=== PATIENT | male | born 1985 | race Caucasian/White ===

== ENCOUNTER 2016-09-18 07:27 | Inpatient (IN) | payer BC ==
[~2016-09-18] VITALS: Ht 180.3 cm; Wt 67.1 kg
[~2016-09-18 07:27] MED LIST: ALPR1TAB PO; CHLR10C PO
--- OUTSIDE RECORDS SUMMARY | 2016-09-18 07:34 | XMS REPORT | Continuity of Care Document ---
Author Author [facility] Organization [facility] Address Unknown Phone Unavailable Care Team Providers Care Make Up Editor Name Role Phone Arlin Armenta PCP [phone] Source Comments Some departments are not documenting in the electronic medical record. If you do not see the information that you expected, contact Release of Information in the Health Information Management department at [phone] for further assistance in locating additional records.[facility] Active Allergies and Adverse Reactions No Known Allergies Current Medications Prescription Sig. Disp. Refills Start End Date Status Date folic acid (FOLVITE) 1 mg Take 1 Tab by mouth 90 Tab 3 01/27/20 Active tablet daily. 16 sertraline (ZOLOFT) 25 mg Take 1 Tab by mouth 30 Tab 3 01/27/20 Active tablet daily. 16 thiamine (VITAMIN B-1) Take 1 Tab by mouth 90 Tab 3 01/27/20 Active 100 mg tablet daily. 16 nicotine polacrilex 1 Lozenge every 1 hour as 100 Tab 0 01/27/20 Active (COMMIT) 4 mg lozenge needed. 16 oxyCODONE (ROXICODONE) 5 Take 1-2 Tabs by mouth 60 Tab 0 01/27/20 Active mg tablet every 4 hours as needed 16 for Pain polyethylene glycol 3350 Take 17 g by mouth daily. 238 g 3 01/27/20 Active (GLYCOLAX; MIRALAX) 17 16 gram/dose powder senna/docusate Take 1 Tab by mouth twice 60 Tab 1 01/27/20 Active (SENOKOT-S) 8.6/50 mg daily. 16 tablet Active Problems Problem Noted Date C. difficile colitis 01/25/2016 Alcohol-induced acute pancreatitis 01/21/2016 Leukocytosis 01/21/2016 Elevated lipase 01/21/2016 SIRS (systemic inflammatory response syndrome) (HCC) 01/21/2016 Alcohol abuse 01/21/2016 Smoker 01/21/2016 Gastroesophageal reflux disease without esophagitis 01/21/2016 Cough 01/21/2016 Acute alcoholic pancreatitis 01/21/2016 Immunizations Name Dates Previously Given Next Due Pneumococcal Vaccine 01/24/2016 (23-Ginger Adult) Social History Tobacco Use Types Packs/Day Years Used Date Current Every Day Smoker Cigarettes 1 10 Smokeless Tobacco: Never Used Alcohol Use Drinks/Week oz/Week Comments Yes 0 Standard 0.0 1-1.5L vodka every 2 days drinks or equivalent Last Filed Vital Signs Vital Sign Reading Time Taken Blood Pressure 117/76 01/27/2016 12:00 PM CDT Pulse 88 01/27/2016 12:00 PM CDT Temperature 37.1 C (98.7 F) 01/27/2016 12:00 PM CDT Respiratory Rate - - Height 1.778 m (5' 10") 01/22/2016 3:24 PM CDT Weight 72.5 kg (159 lb 13.3 oz) 01/24/2016 10:09 AM CDT Body Mass Index 22.93 01/24/2016 10:09 AM CDT Oxygen Saturation 92% 01/27/2016 12:00 PM CDT Plan of Care Health Maintenance Due Date Last Done Comments Physical (Comprehensive) 1993 Exam Pertussis Vaccine 1997 Tetanus Vaccine 2003 Influenza Vaccine 05/17/2016 Results from Last 3 Months Not on file
[2016-09-18] MEDS ORDERED: BUSP30TA2 PO (07:44)
[2016-09-18] MEDS ORDERED: DIAZ2TAB PO (07:44)
[2016-09-18] MEDS ORDERED: FAMOTIDINE 20MG/2ML IV (PEPCID) IV STA (07:59)
[2016-09-18] MEDS ORDERED: fentaNYL INJECTION 100 MCG/2 ML AMP IVP STA (07:59)
[2016-09-18] MEDS ORDERED: KETOROLAC 30 MG/ML VIAL IVP STA (07:59)
[2016-09-18] MEDS ORDERED: NS IV 1000 ML 1,000 ML IV STA (07:59)
[2016-09-18 08:06] LABS: BASOPHILS % (AUTO) 0 % (0-10); EOSINOPHILS # (AUTO) 0.1 10^3/uL (0.0-0.3); EOSINOPHILS % (AUTO) 0 % (0-10); LYMPHOCYTES # (AUTO) 2.2 X 10^3 (1.0-4.0); LYMPHOCYTES % (AUTO) 15 % (12-44); MEAN CORPUSCULAR HEMOGLOBIN 32 PG (25-34); MEAN CORPUSCULAR HGB CONC 35 G/DL (32-36); MEAN CORPUSCULAR VOLUME 92 FL (80-99); MONOCYTES # (AUTO) 0.7 X 10^3 (0.0-1.0); MONOCYTES % (AUTO) 5 % (0-12); NEUTROPHILS # (AUTO) 11.8 X 10^3 (1.8-7.8); NEUTROPHILS % (AUTO) 80 % (42-75); PLATELET COUNT 273 10^3/uL (130-400); RED BLOOD COUNT 4.87 10^6/uL (4.35-5.85); RED CELL DISTRIBUTION WIDTH 13.5 % (10.0-14.5); WHITE BLOOD COUNT 14.8 10^3/uL (4.3-11.0)
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
[2016-09-18 08:21] LABS: ALANINE AMINOTRANSFERASE 37 U/L (0-55); ALBUMIN 4.7 G/DL (3.2-4.5); ALCOHOL 73 MG/DL (<10); AMYLASE 125 U/L (25-125); ANION GAP 19 MMOL/L (5-14); ASPARTATE AMINO TRANSFERASE 37 U/L (5-34); BILIRUBIN,TOTAL 1.1 MG/DL (0.1-1.0); BLOOD UREA NITROGEN 10 MG/DL (7-18); BUN/CREATININE RATIO 12; CARBON DIOXIDE 18 MMOL/L (21-32); CHLORIDE 106 MMOL/L (98-107); CREATININE SERUM 0.82 MG/DL (0.60-1.30); GFR ESTIMATED > 60; GLUCOSE 103 MG/DL (70-105); LIPASE 388 U/L (8-78); POTASSIUM 3.6 MMOL/L (3.6-5.0); SODIUM 143 MMOL/L (135-145); TOTAL PROTEIN 6.6 G/DL (6.4-8.2)
[2016-09-18 08:24] LABS: BAND NEUTROPHILS 1 %; BASOPHILS % (MANUAL) 1 %; EOSINOPHILS % (MANUAL) 0 %; LYMPHOCYTES % (MANUAL) 11 %; NEUTROPHILS % (MANUAL) 84 %
[2016-09-18] MEDS ORDERED: IOHEXOL 350 MG/ML 100 ML (OMNIPAQUE 350) VIAL IV ONE (08:45)
[2016-09-18] MEDS ORDERED: NS 100 ML (IVPB) BAG IV ONE (08:45)
[2016-09-18] MEDS ORDERED: NS IV 1000 ML 1,000 ML IV ONE (09:03)
--- NOTE | 2016-09-18 09:20 | Diagnostic Imaging Report ---
PROCEDURE: CT abdomen and pelvis with contrast. TECHNIQUE: Multiple contiguous axial images were obtained through the abdomen and pelvis after administration of intravenous contrast. INDICATION: Abdominal pain. Left lower quadrant hernia. COMPARISON: None. FINDINGS: Diffuse inflammatory changes surrounding the pancreas. There is a 1.9 x 1.7 x 2.6-cm low-attenuation region in the pancreatic tail. The portal venous system is patent. No evidence of arterial aneurysm. No biliary ductal dilatation or evidence of obstructing lesion. The liver, gallbladder, spleen, adrenals, kidneys, collecting systems and appendix are negative. No free intraperitoneal air, lymphadenopathy or evidence of bowel obstruction. Osseous structures are unremarkable. IMPRESSION: CT findings of acute pancreatitis. There is a low-attenuation, hypoenhancing in the region of tail of pancreas which is indeterminate at this time and may represent developing peripancreatic fluid collection or necrosis. Dictated by: Dictated on workstation # [id number]
[2016-09-18 09:25] LABS: BILIRUBIN,URINE NEGATIVE (NEGATIVE); KETONES,URINE 3+ (NEGATIVE); LEUKOCYTE ESTERASE ,URINE 1+ (NEGATIVE); NITRITE,URINE NEGATIVE (NEGATIVE); PH,URINE 5 (5-9); PROTEIN,URINE 2+ (NEGATIVE); UROBILINOGEN,URINE 1 MG/DL (NORMAL)
[2016-09-18 09:34] LABS: SQUAMOUS EPITHELIAL CELL,UR 0-2 /HPF
[2016-09-18] MEDS ORDERED: HYDROmorphone (DILAUDID) 2 MG/ML VIAL ONE (09:57)
[2016-09-18] MEDS ORDERED: HYDROmorphone (DILAUDID) 2 MG/ML VIAL IVP ONE (10:15)
[2016-09-18] MEDS ORDERED: HYDROmorphone (DILAUDID) 2 MG/ML VIAL IVP PRN (11:30)
[2016-09-18] MEDS: NS IV 1000 ML 1,000 ML IV SCH ×2 (11:42→19:19)
[2016-09-18 12:00] VITALS: BP 137/84
[2016-09-18] MEDS: HYDROmorphone (DILAUDID) 2 MG/ML VIAL IVP PRN ×6 (13:15→22:04)
[2016-09-18] MEDS: NICOTINE 14 MG (NICODERM) PATCH TD SCH (13:42)
[2016-09-18] MEDS ORDERED: FLU TRIvalent (5 YOA+) 2016-17 (AFLURIA) 0.5 ML IM ONE (14:15)
[2016-09-18] MEDS: ONDANSETRON 4 MG/2 ML (SDV) Z0FRAN IVP PRN ×2 (15:06→23:08)
[2016-09-18 16:00] VITALS: BP 160/80
[2016-09-18 19:15] VITALS: BP 161/84
[2016-09-19] VITALS: BP 159/85
[2016-09-19] MEDS: HYDROmorphone (DILAUDID) 2 MG/ML VIAL IVP PRN ×5 (00:08→08:04)
[2016-09-19] MEDS: NS IV 1000 ML 1,000 ML IV SCH (03:21)
[2016-09-19] MEDS: ONDANSETRON 4 MG/2 ML (SDV) Z0FRAN IVP PRN ×2 (03:31→08:11)
[2016-09-19 04:00] VITALS: BP 139/86
[2016-09-19 06:02] LABS: BASOPHILS % (AUTO) 0 % (0-10); EOSINOPHILS % (AUTO) 0 % (0-10); LYMPHOCYTES # (AUTO) 0.6 X 10^3 (1.0-4.0); LYMPHOCYTES % (AUTO) 3 % (12-44); MEAN CORPUSCULAR HEMOGLOBIN 32 PG (25-34); MEAN CORPUSCULAR HGB CONC 34 G/DL (32-36); MEAN CORPUSCULAR VOLUME 94 FL (80-99); MEAN PLATELET VOLUME 10.6 FL (7.4-10.4); MONOCYTES % (AUTO) 6 % (0-12); NEUTROPHILS # (AUTO) 14.7 X 10^3 (1.8-7.8); NEUTROPHILS % (AUTO) 90 % (42-75); PLATELET COUNT 200 10^3/uL (130-400); RED CELL DISTRIBUTION WIDTH 13.1 % (10.0-14.5); WHITE BLOOD COUNT 16.2 10^3/uL (4.3-11.0)
[2016-09-19 06:22] LABS: ALANINE AMINOTRANSFERASE 24 U/L (0-55); ALBUMIN 3.9 G/DL (3.2-4.5); ANION GAP 14 MMOL/L (5-14); ASPARTATE AMINO TRANSFERASE 31 U/L (5-34); BILIRUBIN,TOTAL 1.1 MG/DL (0.1-1.0); BLOOD UREA NITROGEN 5 MG/DL (7-18); BUN/CREATININE RATIO 7; CALCIUM 8.6 MG/DL (8.5-10.1); CARBON DIOXIDE 19 MMOL/L (21-32); CHLORIDE 104 MMOL/L (98-107); GFR ESTIMATED > 60; GLUCOSE 117 MG/DL (70-105); POTASSIUM 4.3 MMOL/L (3.6-5.0); SODIUM 137 MMOL/L (135-145)
[2016-09-19] MEDS: NICOTINE 14 MG (NICODERM) PATCH TD SCH (08:03)
[2016-09-19 08:40] VITALS: BP 163/79
[2016-09-19] MEDS: NICOTINE PATCH REMOVAL TP SCH (09:26)
[2016-09-19] MEDS ORDERED: diphenhydrAMINE 50 MG/ML INJ (BENADRYL) IV PRN (09:30)
[2016-09-19] MEDS ORDERED: AA 4.25% W/LYTES IN D5W IV SOL 1,000 ML IV SCH (09:30)
[2016-09-19] MEDS ORDERED: NALOXONE 0.4 MG/ML 1 ML (NARCAN) VIAL IV PRN (09:30)
[2016-09-19] MEDS ORDERED: METOCLOPRAMIDE INJ 10 MG/2 ML (REGLAN) IV PRN (09:30)
[2016-09-19] MEDS ORDERED: PANTOPRAZOLE 40 MG/10 ML (PROTONIX) VIAL IV SCH (09:30)
[2016-09-19] MEDS ORDERED: ONDANSETRON 4 MG/2 ML (SDV) Z0FRAN IV PRN (09:30)
[2016-09-19] MEDS ORDERED: TPN IV SCH (09:30)
[2016-09-19] MEDS: HYDROmorphone PCA 0.2 MG/ML 30 ML (DILAUDID) IV PRN ×2 (09:57→23:09)
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
[2016-09-19 10:08] LABS: MAGNESIUM 1.9 MG/DL (1.8-2.4); PHOSPHORUS 3.1 MG/DL (2.3-4.7)
--- NOTE | 2016-09-19 10:57 | Diagnostic Imaging Report ---
Portable upright radiograph of the chest. INDICATION: PICC line placement. FINDINGS: There is a right PICC line with the tip at the cavoatrial junction. The lungs are clear. The heart size is normal. No effusion or pneumothorax. Mediastinum and josh appear unremarkable. IMPRESSION: Unremarkable exam. Dictated by: Dictated on workstation # [id number]
[2016-09-19 12:30] VITALS: BP 138/84
[2016-09-19] MEDS: cefTRIAXone INJECTION 1,000 MG in NORMAL SALINE (BAXTER MINI) 50 ML IV SCH (14:16)
--- NOTE | 2016-09-19 14:49 | CONSULTATION REPORT ---
DATE OF ADMISSION: 09/18/2016 DATE OF CONSULTATION: 09/19/2016 ADMITTING PHYSICIAN: Dr. Boyce. BRIEF HISTORY: Mr. Addy Fay is a 31-year-old male with a history of acute pancreatitis back in November 2015. This required hospital admission and eventually transfer to a tertiary center. This gentleman reports that he has had a long-standing history of alcohol abuse however after his episode of acute pancreatitis he states that he has tried to decrease the amount of drinking. He reports that the day before this admission he did drink again. He reports that he had an argument with his girlfriend and did start to drink and this resulted in an epigastric sharp pain, as well as nausea and vomiting. A CT scan was performed, which did show inflammation of the pancreas, as well as potential area of non- perfusion, which may indicate a sterile necrosis, which may be from the previous pancreatitis versus a new area. At this time, he only has one [place] criteria out of five. His pain is controlled with a ELECTRICAL MAINTENANCE ENGINEER pump. PAST MEDICAL HISTORY: 1. Alcohol abuse. 2. Depression. 3. ADHD. 4. Anxiety. PAST SURGERIES: 1. Tonsillectomy. 2. Hernia repair. ALLERGIES: AUGMENTIN MEDICATIONS: Bupropion SOCIAL HISTORY: Positive alcohol. Positive smoke 10 pack-years. FAMILY HISTORY: Paternal uncle with pancreatic cancer. VITAL SIGNS: Temperature 99.9, blood pressure 163/79, pulse 109, respirations 18, pulse oximetry 97% on room air. REVIEW OF SYSTEMS: This is a well nourished male, currently comfortable with a ELECTRICAL MAINTENANCE ENGINEER. He is not experiencing shortness of breath or difficulty in breathing. He is experiencing some cough and sputum production. No chest pain, palpitations, diaphoresis. Previous nausea and vomiting. No episodes of diarrhea, no constipation. No red blood per rectum. No dark tarry stools. No fever, chills, no recent inadvertent weight loss. PHYSICAL EXAMINATION: CHEST: Good breath sounds bilaterally. HEART: Regular. EXTREMITIES: No lower extremity edema. Negative Homans sign. HEENT: No scleral icterus. No cervical lymphadenopathy. ABDOMEN: Soft, nondistended. There is pain in the epigastric region with voluntary guarding, no rebound. LABS: WBC 16.2, hemoglobin 15.5, hematocrit 44, platelets 200, total bilirubin 1.1, AST 31, ALT 24, amylase 125, lipase 388. ASSESSMENT AND PLAN: 31-year-old male with acute recurrent episode of acute pancreatitis. Signs and symptoms are most likely consistent with another episode of acute pancreatitis. A CT scan was done on admission, which did show a potential area of nonvisualization or ischemic changes of the tail of the pancreas which most likely indicates an area of sterile necrosis from his previous episode versus a new area. Either way treatment modality will be similar which will be bowel rest, IV fluids, as well as pain control. If he does have worsening symptoms despite medical therapy he would need confirmation of infected pancreatic necrosis with biopsy and if this was the case, he will may need further therapy, which may include a pancreatic necrosectomy; however we would refer him to a tertiary center for this. Job ID: [id number] Dictated Date: 09/19/2016 13:41:15 Senior Business Manager Date: 09/19/2016 14:39:53/harshal MANCILLA
[2016-09-19 16:00] VITALS: BP 135/93
[2016-09-19] MEDS: ACETAMINOPHEN 325 MG TABLET/CAPLET (TYLENOL) PO PRN (16:43)
[2016-09-19] MEDS ORDERED: SODIUM ACETATE IV SCH ×11 (17:00)
[2016-09-19] MEDS ORDERED: SODIUM CHLORIDE IV SCH ×11 (17:00)
[2016-09-19] MEDS ORDERED: [UNRECOGNIZED DRUG - OTHER] IV SCH ×11 (17:00)
[2016-09-19] MEDS: 1/2 NS IV SOLUTION 1,000 ML IV SCH (17:01)
[2016-09-19] MEDS: PANTOPRAZOLE 40 MG/10 ML (PROTONIX) VIAL IV SCH (20:24)
[2016-09-19 20:52] VITALS: BP 140/76
[2016-09-20] VITALS: BP 143/83
[2016-09-20 04:00] VITALS: BP 143/84
--- NOTE | 2016-09-20 07:43 | Progress Note-Hospitalist ---
Progress Note HPI/CC on Admission CC: Severe abdominal pain HPI: This is a 31yoWM that has Hx of pancreatitis due to severe ETOH abuse that presents to ER with abdominal pain found to have acute pancreatitis on CT scan with lipase of 388. He reports that he has been trying to avoid ETOH but had a break up with his girlfriend and drank a pint of vodka which resulted in this issue. RN is concerned about elevated WBC and severe pain and tachycardia. I have consulted Dr. Marinelli, due to possible necrosis on CT scan. Chart Review: CT abdomen shows acute pancreatitis with possible fluid collection or necrosis. community center worker: Pt has requested Protonix, and states that he has stomach pain. WBC has risen slightly. Pt's vomit was discolored, possible blood. Patient Interview: Dr. Grace informs pt that he will receive Protonix and will have a consultation with Dr. Marinelli. Pt states that he still has significant pain. Pt states that he always has heart burn. Pt states that he thinks there was tar in his vomit, not blood, due to his smoking habits. Physical exam was stable. Pt states that he had pancreatitis in November of 2015. Pt was hospitalized at [place] for 4 days and then sent to for pneumonia and C. diff. Pt does not remember much of this incident. Pt stayed at for a week. Pt states that he has stayed away from ETOH until recent break up. 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 Pt states that his current pain meds last for only an hour. Scribed by Conrado Worley under the direct supervision of Dr. Grace. Progress Notes/Assess & Plan Date Seen 09/20/16 Admission Dx/Process Assessment: Acute pancreatitis recurrent type. Last 11/29 complicated with pneumonia and C. diff required [facility] transfer for 7 days. Now with increased pain and possible necrosis of pancreas. Smoker Leukocytosis Diagonsis/Assessment & Plan community center worker: Pt did well last night. Pt has not had nausea or vomiting. When pt is awake is pain is more controlled. Dr. Marinelli saw pt. Patient Interview: Pt states he is doing better than yesterday. Pt denies nausea or vomiting. Physical exam was stable. Pt denies ambulating. Pt states he was too weak to ambulate yesterday. Pt was encouraged to ambulate today. Pt was informed he is receiving calories through his IV. Scribed by Asif Leonard under the direct supervision of Dr. Grace. AFVSS, Pleasant, O x 3, thin RRR, CTAB no rales noted + BS mild ttp to soft palpation Assessment: Severe and recurrent pancreatitis Immobile so ordered PT and ordered Lovenox for DVT Px meth use ETOH-ism Plan: Consult Dr. Marinelli appreciated Continue Protonix IV PICC line maintained Maintain TPN Stop Dilaudid IVP and begin COLLAR CLOSER LOCKSTITCH of Dilaudid Will initiate Lovenox due to immobile state PT FAN GRACE DO Sep 20, 2016 07:43
[2016-09-20] MEDS: SENNA W/DOCUSATE (SENOKOT S) TABLET PO SCH (08:21)
[2016-09-20] MEDS: NICOTINE 14 MG (NICODERM) PATCH TD SCH (08:21)
[2016-09-20] MEDS: ENOXAPARIN 40 MG/0.4 ML (LOVENOX) SYR SC SCH (08:21)
[2016-09-20] MEDS: PANTOPRAZOLE 40 MG/10 ML (PROTONIX) VIAL IV SCH ×2 (08:21→20:04)
[2016-09-20] MEDS: cefTRIAXone INJECTION 1,000 MG in NORMAL SALINE (BAXTER MINI) 50 ML IV SCH (08:22)
[2016-09-20] MEDS: NICOTINE PATCH REMOVAL TP SCH (08:22)
[2016-09-20 08:24] LABS: BASOPHILS % (AUTO) 0 % (0-10); EOSINOPHILS % (AUTO) 0 % (0-10); LYMPHOCYTES % (AUTO) 5 % (12-44); MEAN CORPUSCULAR HEMOGLOBIN 34 PG (25-34); MEAN CORPUSCULAR HGB CONC 34 G/DL (32-36); MEAN CORPUSCULAR VOLUME 101 FL (80-99); MEAN PLATELET VOLUME 11.1 FL (7.4-10.4); MONOCYTES # (AUTO) 0.9 X 10^3 (0.0-1.0); MONOCYTES % (AUTO) 5 % (0-12); NEUTROPHILS # (AUTO) 15.6 X 10^3 (1.8-7.8); NEUTROPHILS % (AUTO) 89 % (42-75); PLATELET COUNT 138 10^3/uL (130-400); RED BLOOD COUNT 4.16 10^6/uL (4.35-5.85); RED CELL DISTRIBUTION WIDTH 13.8 % (10.0-14.5); WHITE BLOOD COUNT 17.5 10^3/uL (4.3-11.0)
[2016-09-20 08:30] VITALS: BP 135/84
[2016-09-20 10:05] LABS: ALANINE AMINOTRANSFERASE 16 U/L (0-55); ALBUMIN 3.4 G/DL (3.2-4.5); AMYLASE 85 U/L (25-125); ANION GAP 10 MMOL/L (5-14); ASPARTATE AMINO TRANSFERASE 20 U/L (5-34); BILIRUBIN,TOTAL 0.6 MG/DL (0.1-1.0); BLOOD UREA NITROGEN 11 MG/DL (7-18); BUN/CREATININE RATIO 15; CALCIUM 8.5 MG/DL (8.5-10.1); CARBON DIOXIDE 26 MMOL/L (21-32); CHLORIDE 98 MMOL/L (98-107); CREATININE SERUM 0.71 MG/DL (0.60-1.30); GFR ESTIMATED > 60; GLUCOSE 218 MG/DL (70-105); LIPASE 186 U/L (8-78); POTASSIUM 4.2 MMOL/L (3.6-5.0); SODIUM 134 MMOL/L (135-145); TOTAL PROTEIN 5.6 G/DL (6.4-8.2)
--- NOTE | 2016-09-20 10:08 | Physical Therapy Evaluation ---
PT Evaluation-General Medical Diagnosis Admission Date Sep 18, 2016 at 10:33 Medical Diagnosis: Pancreatitis Onset Date: Sep 18, 2016 Therapy Diagnosis Therapy Diagnosis: debility Height/Weight Height (Feet): 5 Height (Inches): 11.00 Weight (Pounds): 146 Weight (Ounces): 0.0 Precautions Precautions/Isolations: Standard Precautions Referral Physician: Carli Reason for Referral: Evaluation/Treatment Medical History Pertinent Medical History: Alcoholism, Smoking Additional Medical History ADD/ADHD Current History 11/29 pancreatitis episode; increase in abdominal pain after drinking ETOH Reviewed History: Yes Social History Home: Single Level Current Living Status: Alone Prior/Core FIM Prior Level of Function Functional [place] Measure 0=Not Assessed/NA 4=Minimal Assistance 1=Total Assistance 5=Supervision or Setup 2=Maximal Assistance 6=Modified [place] 3=Moderate Assistance 7=Complete [place] Bed Mobility: 7 Transfers (B,C,W/C) (FIM): 7 Gait: 7 Locomotion: 7 PT Evaluation-Current Subjective Patient c/o 10/10 abdominal pain with SYSTEMS OPERATOR attached. Pain Numeric Pain Scale: 10-Worst Possible Pain Location: Upper Location Body Site: Abdomen Pain Description: Acute, Sharp, Cramping Objective Patient Orientation: Normal For Age Problem Solving: Good Attachments: IV ROM/Strength ROM Lower Extremities bilateral LE WFL Strenght Lower Extremities bilateral LE WFL Integumentary/Posture Integumentary refer to nursing notes Bowel Incontinence: No Bladder Incontinence: No Posture WNL Neuromuscular (Tone, Coordination, Reflexes) grossly intact Sensory Vision: Functional Hearing: Functional Sensation Right Lower Extremit: Intact Sensation Left Lower Extremity: Intact Transfers Functional [place] Measure 0=Not Assessed/NA 4=Minimal Assistance 1=Total Assistance 5=Supervision or Setup 2=Maximal Assistance 6=Modified [place] 3=Moderate Assistance 7=Complete [place] Transfers (B, C, W/C) (FIM): 6 Scootin Rollin Supine to/from Sit: 6 Sit to/from Stand: 6 Gait Mode of Locomotion: Walk Anticipated Mode of Locomotion: Walk Gait (FIM): 6 Distance (FIM): 3=150 ft Distance: 300' Gait Level of Assist: 6 Gait Assistive Device: FWW Comments/Gait Description use of FWW take pressure off of abdomen Balance Sitting Static: Normal Sitting Dynamic: Normal Standing Static: Normal Standing Dynamic: Normal Assessment/Needs 31 y.o. male will be seen x 2 visits to address mobility and to encourage mobility to decrease possible negative side effects of inactivity due to abdominal pain. Rehab Potential: Good PT Short Term Goals Short Term Goals Time Frame: Sep 21, 2016 Transfers (B,C,W/C) (FIM): 6 Gait (FIM): 6 Distance (FIM): 3=150 ft Gait Level of Assist: 6 Gait Assistive Device: None, FWW PT Plan Problem List Problem List: Activity Tolerance Treatment/Plan Treatment Plan: Continue Plan of Care Treatment Plan: Education, Functional Activity Eber, Gait Treatment Duration: Sep 21, 2016 # of days/week 2 Visits Per Week: 2 Pt/Family Agrees w/Plan: Yes Safety Risks/Education Patient Education: Gait Training, Disease Process Teaching Recipient: Patient Teaching Methods: Discussion Response to Teaching: Verbalize Understanding Time/GCodes Time In: 830 Time Out: 855 Total Billed Treatment Time: 25 Total Billed Treatment 1 visit EVL 15 min GT 10 min G Codes Necessary: No ALLISON CHANCE PT Sep 20, 2016 10:08
[2016-09-20 12:13] VITALS: BP 140/82
[2016-09-20] MEDS: 1/2 NS IV SOLUTION 1,000 ML IV SCH (12:50)
--- NOTE | 2016-09-20 15:21 | Progress Note (SOAP) ---
Subjective Subjective/Events-last exam doing better. pain better controlled. no fever/chills. no nausea/vomiting. Objective Exam Vital Signs Date Time Temp Pulse Resp B/P Pulse Ox O2 Delivery O2 Flow Rate FiO2 09/20/16 12:13 98.9 118 18 140/82 97 Room Air 09/20/16 08:30 98.5 115 18 135/84 96 Room Air 09/20/16 06:00 20 09/20/16 04:00 99.9 125 20 143/84 95 Room Air 09/20/16 00:00 100.1 125 20 143/83 95 Room Air 09/19/16 23:09 20 09/19/16 20:52 99.1 120 20 140/76 95 Room Air 09/19/16 17:28 100.0 09/19/16 16:43 101.2 09/19/16 16:00 101.0 118 20 135/93 96 Room Air I & O 09/20/16 07:00 Intake Total 1300 ml Output Total 1100 ml Balance 200 ml Capillary Refill : Less Than 3 Seconds General Appearance: No Apparent Distress HEENT: PERRL/EOMI Neck: Full Range of Motion Respiratory: Chest Non Tender Lungs Clear Cardiovascular: Regular Rate, Rhythm Gastrointestinal: soft tenderness Extremity: Normal Capillary Refill Neurologic/Psychiatric: Alert Oriented x3 Skin: Normal Color Lymphatic: No Adenopathy Results Lab Laboratory Tests 09/20/16 08:00: Basophils # (Auto) 0.0, Basophils (%) (Auto) 0, Eosinophils # (Auto) 0.0, Eosinophils (%) (Auto) 0, Hematocrit 42, Hemoglobin 14.0, Lymphocytes # (Auto) 1.0, Lymphocytes (%) (Auto) 5L, Mean Corpuscular Hemoglobin 34, Mean Corpuscular Hemoglobin Concent 34, Mean Corpuscular Volume 101H, Mean Platelet Volume 11.1H, Monocytes # (Auto) 0.9, Monocytes (%) (Auto) 5, Neutrophils # ( Auto) 15.6H, Neutrophils (%) (Auto) 89H, Platelet Count 138, Red Blood Count 4.16L, Red Cell Distribution Width 13.8, White Blood Count 17.5H 09/20/16 09:40: Alanine Aminotransferase (ALT/SGPT) 16, Albumin 3.4, Alkaline Phosphatase 86, Amylase Level 85, Anion Gap 10, Aspartate Amino Transf (AST/SGOT) 20, BUN/ Creatinine Ratio 15, Blood Urea Nitrogen 11, Calcium Level 8.5, Carbon Dioxide Level 26, Chloride Level 98, Creatinine 0.71, Estimat Glomerular Filtration Rate > 60, Glucose Level 218H, Lipase 186H, Potassium Level 4.2, Sodium Level 134L, Total Bilirubin 0.6, Total Protein 5.6L Assessment/Plan Assessment/Plan Assess & Plan/Chief Complaint acute pancreatitis. start clear liquids. f/u CT tomorrow. Diagnosis/Problems: Clinical Quality Measures DVT/VTE Risk/Contraindication: Risk Factor Score Per Nursin RFS Level Per Nursing on Admit: 2=Moderate JOE PIERRE MD Sep 20, 2016 3:21 pm
[2016-09-20 16:00] VITALS: BP 154/90
[2016-09-20] MEDS: HYDROmorphone PCA 0.2 MG/ML 30 ML (DILAUDID) IV PRN (16:24)
[2016-09-20] MEDS: MEROPENEM 500 MG/NS 100 ML IVPB IV SCH ×2 (17:44)
[2016-09-20] MEDS: SODIUM CHLORIDE IV SCH ×12 (17:48)
[2016-09-20] MEDS: SODIUM ACETATE IV SCH ×12 (17:48)
[2016-09-20] MEDS: [UNRECOGNIZED DRUG - OTHER] IV SCH ×12 (17:48)
[2016-09-20 20:00] VITALS: BP 134/81
[2016-09-20] MEDS ORDERED: MEROPENEM 1,000 MG in NORMAL SALINE (BAXTER MINI) 100 ML IV SCH (22:00)
[2016-09-21] VITALS: BP 135/70
[2016-09-21] MEDS: MEROPENEM 500 MG/NS 100 ML IVPB IV SCH ×8 (00:23→17:15)
[2016-09-21 04:00] VITALS: BP 130/69
[2016-09-21] MEDS: ENOXAPARIN 40 MG/0.4 ML (LOVENOX) SYR SC SCH (06:06)
[2016-09-21] MEDS: HYDROcodone/APAP 7.5 MG/325 MG (LORTAB, LORCET PLUS) TABLET PO PRN ×4 (07:37→21:42)
[2016-09-21 08:00] VITALS: BP 133/92
[2016-09-21] MEDS: NICOTINE 14 MG (NICODERM) PATCH TD SCH (08:13)
[2016-09-21] MEDS: SENNA W/DOCUSATE (SENOKOT S) TABLET PO SCH (08:13)
[2016-09-21] MEDS: NICOTINE PATCH REMOVAL TP SCH (08:13)
[2016-09-21] MEDS: PANTOPRAZOLE 40 MG/10 ML (PROTONIX) VIAL IV SCH ×2 (08:13→20:52)
[2016-09-21 08:45] LABS: BASOPHILS % (AUTO) 0 % (0-10); EOSINOPHILS # (AUTO) 0.1 10^3/uL (0.0-0.3); EOSINOPHILS % (AUTO) 1 % (0-10); LYMPHOCYTES % (AUTO) 10 % (12-44); MEAN CORPUSCULAR HEMOGLOBIN 33 PG (25-34); MEAN CORPUSCULAR HGB CONC 34 G/DL (32-36); MEAN CORPUSCULAR VOLUME 98 FL (80-99); MEAN PLATELET VOLUME 11.1 FL (7.4-10.4); MONOCYTES # (AUTO) 0.6 X 10^3 (0.0-1.0); MONOCYTES % (AUTO) 5 % (0-12); NEUTROPHILS # (AUTO) 9.1 X 10^3 (1.8-7.8); NEUTROPHILS % (AUTO) 84 % (42-75); PLATELET COUNT 138 10^3/uL (130-400); RED BLOOD COUNT 3.54 10^6/uL (4.35-5.85); RED CELL DISTRIBUTION WIDTH 13.2 % (10.0-14.5); WHITE BLOOD COUNT 10.8 10^3/uL (4.3-11.0)
[2016-09-21] MEDS: HYDROmorphone PCA 0.2 MG/ML 30 ML (DILAUDID) IV PRN (09:07)
[2016-09-21] MEDS: 1/2 NS IV SOLUTION 1,000 ML IV SCH (09:08)
--- NOTE | 2016-09-21 09:45 | Physical Therapy Progress Note ---
Therapy Progress Note Patient up independent in room and hallway. PT to dismiss from services at this time. ALLISON CHANCE PT Sep 21, 2016 09:45
--- NOTE | 2016-09-21 10:25 | Progress Note-Hospitalist ---
Progress Note HPI/CC on Admission CC: Severe abdominal pain HPI: This is a 31yoWM that has Hx of pancreatitis due to severe ETOH abuse that presents to ER with abdominal pain found to have acute pancreatitis on CT scan with lipase of 388. He reports that he has been trying to avoid ETOH but had a break up with his girlfriend and drank a pint of vodka which resulted in this issue. RN is concerned about elevated WBC and severe pain and tachycardia. I have consulted Dr. Marinelli, due to possible necrosis on CT scan. Chart Review: CT abdomen shows acute pancreatitis with possible fluid collection or necrosis. 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 WBC has risen slightly. Pt's vomit was discolored, possible blood. Patient Interview: Dr. Boyce informs pt that he will receive Protonix and will have a consultation with Dr. Mairnelli. Pt states that he still has significant pain. Pt states that he always has heart burn. Pt states that he thinks there was tar in his vomit, not blood, due to his smoking habits. Physical exam was stable. Pt states that he had pancreatitis in November of 2015. Pt was hospitalized at [place] for 4 days and then sent to for pneumonia and C. diff. Pt does not remember much of this incident. Pt stayed at for a week. Pt states that he has stayed away from ETOH until recent break up. 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 Pt states that his current pain meds last for only an hour. Scribed by Conrado Worley under the direct supervision of Dr. Boyce. Progress Notes/Assess & Plan Date Seen 09/21/16 Admission Dx/Process Assessment: Acute pancreatitis recurrent type. Last 11/29 complicated with pneumonia and C. diff required [facility] transfer for 7 days. Now with increased pain and possible necrosis of pancreas. 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 Marinelli. RN states that she has been encouraging pt to ambulate. Dr. Marinelli stated that pt will be set for CL[facility] after CT scan. Patient Interview: Pt states that he feels better today. Dr. Boyce informs pt that WBC is stable, and overall health is improving. Physical exam was stable. Pt states that his pain is manageable. Pt had a Hydrocodone this morning. Dr. Boyce informs pt that he may be able to DC this weekend depending on CT scan results, but may have to stay longer. Scribed by Conrado Worley under the direct supervision of Dr. Boyce. AFVSS, Pleasant, O x 3, thin, improved today, more comfy RRR, CTAB no rales noted + BS mild ttp to soft palpation Laboratory Tests 09/21/16 08:35 Assessment: Severe and recurrent pancreatitis Immobile so ordered PT and ordered Lovenox for DVT Px meth use ETOH-ism Plan: CT abdomen/pelvis repeat today Advance diet per Dr. Marinelli's orders Consult Dr. Marinelli appreciated Continue Protonix IV PICC line maintained Maintain TPN Maintain GUN STRIPER of Dilaudid Will initiate Lovenox due to immobile state PT FAN BOYCE DO Sep 21, 2016 10:25
[2016-09-21] MEDS ORDERED: NS 100 ML (IVPB) BAG IV ONE (10:30)
[2016-09-21] MEDS ORDERED: IOHEXOL 350 MG/ML 100 ML (OMNIPAQUE 350) VIAL IV ONE (10:30)
--- NOTE | 2016-09-21 10:49 | Progress Note (SOAP) ---
Subjective Subjective/Events-last exam doing ok. pain better controlled. tolerating clear liquids. labs normalizing. Objective Exam Vital Signs Date Time Temp Pulse Resp B/P Pulse Ox O2 Delivery O2 Flow Rate FiO2 09/21/16 09:07 18 09/21/16 08:00 100.4 113 18 133/92 93 Room Air 09/21/16 06:00 18 09/21/16 04:00 99.4 94 18 130/69 97 Room Air 09/21/16 00:00 99.7 117 21 135/70 98 Room Air 09/20/16 20:00 98.9 120 24 134/81 93 Room Air 09/20/16 17:58 18 09/20/16 16:24 18 09/20/16 16:00 101.0 120 16 154/90 95 Room Air 09/20/16 12:13 98.9 118 18 140/82 97 Room Air I & O 09/21/16 07:00 Intake Total 2300 ml Output Total 1100 ml Balance 1200 ml Capillary Refill : Less Than 3 Seconds General Appearance: No Apparent Distress HEENT: PERRL/EOMI Neck: Full Range of Motion Respiratory: Chest Non Tender Lungs Clear Normal Breath Sounds Cardiovascular: Regular Rate, Rhythm Gastrointestinal: normal bowel sounds soft Extremity: Normal Capillary Refill Neurologic/Psychiatric: Alert Oriented x3 Skin: Normal Color Lymphatic: No Adenopathy Results Lab Laboratory Tests 09/21/16 08:35: Basophils # (Auto) 0.0, Basophils (%) (Auto) 0, Eosinophils # (Auto) 0.1, Eosinophils (%) (Auto) 1, Hematocrit 35L, Hemoglobin 11.7L, Lymphocytes # (Auto ) 1.0, Lymphocytes (%) (Auto) 10L, Mean Corpuscular Hemoglobin 33, Mean Corpuscular Hemoglobin Concent 34, Mean Corpuscular Volume 98, Mean Platelet Volume 11.1H, Monocytes # (Auto) 0.6, Monocytes (%) (Auto) 5, Neutrophils # ( Auto) 9.1H, Neutrophils (%) (Auto) 84H, Platelet Count 138, Red Blood Count 3.54L, Red Cell Distribution Width 13.2, White Blood Count 10.8 09/21/16 09:58: Glucometer 148H Assessment/Plan Assessment/Plan Assess & Plan/Chief Complaint acute pancreatitis. slowly advance to low fat diet. transition to PO pain meds. Diagnosis/Problems: Clinical Quality Measures DVT/VTE Risk/Contraindication: Risk Factor Score Per Nursin RFS Level Per Nursing on Admit: 2=Moderate JOE PIERRE MD Sep 21, 2016 10:49 am
[2016-09-21 12:30] VITALS: BP 139/87
--- NOTE | 2016-09-21 13:43 | Diagnostic Imaging Report ---
PROCEDURE: CT abdomen and pelvis with contrast. TECHNIQUE: Multiple contiguous axial images were obtained through the abdomen and pelvis after administration of intravenous contrast. INDICATION: Pancreatitis. Exam compared September 18, 2016. FINDINGS: The tail of the pancreas shows progressive hypodensity, peripancreatic edema and thickening along the lateral conal fascia on the left compatible with worsened sequelae of pancreatitis. The length of pancreatic tail showing imperceptible enhancement is about 6.0 cm long with thickness of 2.7 cm. No parenchymal gas. This may be severe edema; however, developing necrosis could not be excluded. Pseudocyst has developed posterior to the stomach effacing its posterior wall which is thickened and edematous. This collection in axial plane measured 5.5 x 4.2 cm maximal. There is an additional separable thin-walled collection just cephalad to the pancreatic neck measuring 3.2 cm. Stomach is nondilated. The duodenum nondilated. Trace free fluid along the colic gutters present having developed since the prior and there is small/ moderate-volume pelvic free fluid as a new finding. The appendix is normal. The urinary tracts are unobstructed. The kidneys well perfused. Fatty infiltration of the liver has significantly improved from the prior. Gallbladder and bile ducts unremarkable. There are bilateral pleural effusions nonloculated layering to a depth of 2 cm with subjacent passive atelectasis greater left. There is no free air. Spleen well perfused, upper limits of size but nonfocal. There were no findings of hemorrhage and no aneurysm or pseudoaneurysm identified. IMPRESSION: Worsened sequelae of acute pancreatitis. The thickened markedly hypodense tail showed no convincing enhancement, and developing necrosis could not be excluded. No soft tissue gas, however. Pseudocysts have developed; the largest abuts the thickened posterior gastric wall. Abdominal/ pelvic free fluid having developed as well as bibasilar pleural effusions. No biliary dilatation. No evidence for hemorrhage. Dictated by: Dictated on workstation # [id number]
[2016-09-21 14:20] LABS: ALANINE AMINOTRANSFERASE 12 U/L (0-55); ALBUMIN 2.9 G/DL (3.2-4.5); ANION GAP 9 MMOL/L (5-14); ASPARTATE AMINO TRANSFERASE 14 U/L (5-34); BILIRUBIN,TOTAL 0.7 MG/DL (0.1-1.0); BLOOD UREA NITROGEN 7 MG/DL (7-18); BUN/CREATININE RATIO 12; CALCIUM 7.9 MG/DL (8.5-10.1); CARBON DIOXIDE 27 MMOL/L (21-32); CHLORIDE 99 MMOL/L (98-107); CREATININE SERUM 0.58 MG/DL (0.60-1.30); GFR ESTIMATED > 60; GLUCOSE 155 MG/DL (70-105); LIPASE 134 U/L (8-78); POTASSIUM 3.3 MMOL/L (3.6-5.0); SODIUM 135 MMOL/L (135-145); TOTAL PROTEIN 5.2 G/DL (6.4-8.2)
[2016-09-21 16:00] VITALS: BP 130/80
[2016-09-21] MEDS: SODIUM CHLORIDE IV SCH ×12 (17:26)
[2016-09-21] MEDS: [UNRECOGNIZED DRUG - OTHER] IV SCH ×12 (17:26)
[2016-09-21] MEDS: SODIUM ACETATE IV SCH ×12 (17:26)
[2016-09-21 20:00] VITALS: BP 148/84
[2016-09-22] VITALS: BP 135/73
[2016-09-22] MEDS: MEROPENEM 500 MG/NS 100 ML IVPB IV SCH ×10 (00:12→23:17)
[2016-09-22 04:00] VITALS: BP 152/84
[2016-09-22] MEDS: HYDROcodone/APAP 7.5 MG/325 MG (LORTAB, LORCET PLUS) TABLET PO PRN ×5 (04:46→20:30)
[2016-09-22] MEDS: 1/2 NS IV SOLUTION 1,000 ML IV SCH ×2 (05:00→06:39)
[2016-09-22] MEDS: ENOXAPARIN 40 MG/0.4 ML (LOVENOX) SYR SC SCH (06:16)
[2016-09-22 06:30] LABS: MEAN PLATELET VOLUME 10.2 FL (7.4-10.4); RED BLOOD COUNT 3.61 10^6/uL (4.35-5.85); RED CELL DISTRIBUTION WIDTH 13.1 % (10.0-14.5); WHITE BLOOD COUNT 10.6 10^3/uL (4.3-11.0)
[2016-09-22 06:44] LABS: ANION GAP 11 MMOL/L (5-14); BLOOD UREA NITROGEN 8 MG/DL (7-18); BUN/CREATININE RATIO 14; CALCIUM 8.2 MG/DL (8.5-10.1); CARBON DIOXIDE 26 MMOL/L (21-32); CHLORIDE 101 MMOL/L (98-107); CREATININE SERUM 0.56 MG/DL (0.60-1.30); GFR ESTIMATED > 60; GLUCOSE 130 MG/DL (70-105); POTASSIUM 3.4 MMOL/L (3.6-5.0); SODIUM 138 MMOL/L (135-145)
[2016-09-22 08:00] VITALS: BP 149/80
[2016-09-22] MEDS: CATHETER FLUSH 10 ML SYR IV PRN (08:30)
[2016-09-22] MEDS: PANTOPRAZOLE 40 MG/10 ML (PROTONIX) VIAL IV SCH ×2 (08:30→20:26)
[2016-09-22] MEDS: SENNA W/DOCUSATE (SENOKOT S) TABLET PO SCH (08:30)
[2016-09-22] MEDS: NICOTINE 14 MG (NICODERM) PATCH TD SCH (08:35)
[2016-09-22] MEDS: NICOTINE PATCH REMOVAL TP SCH (08:35)
--- NOTE | 2016-09-22 11:16 | Progress Note ---
Subjective Subjective/Events-last exam Pt seen and examined. States pain is better, mostly controlled with "pills, don 't have to use DIRECTOR STAFFING as much". He also thinks his belly is less distended. He is tolerating clears and would like to eat more. Review of Systems General: No Chills, No Night Sweats HEENT: No Head Aches, No Visual Changes Pulmonary: No Dyspnea, No Cough Cardiovascular: No: Chest Pain, Palpitations Gastrointestinal: : Abdominal PainNo: Nausea, Vomiting Neurological: No: Numbness, Weakness Objective Exam Vital Signs Date Time Temp Pulse Resp B/P Pulse Ox O2 Delivery O2 Flow Rate FiO2 09/22/16 09:10 99.5 09/22/16 08:31 99.5 09/22/16 08:00 99.5 94 20 149/80 97 Room Air 09/22/16 08:00 18 09/22/16 06:00 16 09/22/16 04:00 100.3 101 20 152/84 95 Room Air 09/22/16 00:00 99.2 99 20 135/73 94 Room Air 09/21/16 20:00 99.6 93 17 148/84 98 Room Air 09/21/16 17:15 16 09/21/16 16:00 98.9 104 16 130/80 94 Room Air 09/21/16 12:30 97.8 96 18 139/87 95 Room Air I & O 09/22/16 07:00 Intake Total 4930 ml Output Total 2950 ml Balance 1980 ml Capillary Refill : Less Than 3 Seconds General Appearance: No Apparent Distress WD/WN HEENT: PERRL/EOMI Pharynx Normal Neck: Full Range of Motion Respiratory: Chest Non Tender No Accessory Muscle Use Decreased Breath Sounds (at bases) Rhonci Cardiovascular: Regular Rate, Rhythm No Murmur Peripheral Pulses: 2+ Dorsalis Pedis (R), 2+ Left Dors-Pedis (L), 2+ Radial Pulses (R), 2+ Radial Pulses (L) Gastrointestinal: normal bowel sounds soft distended (minimally) Extremity: Normal Capillary Refill Non Tender No Calf Tenderness Neurologic/Psychiatric: Alert Oriented x3 Normal Mood/Affect composition 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 II-XII Norm as Tested Skin: Normal Color Warm/Dry Lymphatic: No Adenopathy Results Lab Laboratory Tests 09/21/16 12:36: Glucometer 176H 09/21/16 13:55: Alanine Aminotransferase (ALT/SGPT) 12, Albumin 2.9L, Alkaline Phosphatase 72, Anion Gap 9, Aspartate Amino Transf (AST/SGOT) 14, BUN/Creatinine Ratio 12, Blood Urea Nitrogen 7, Calcium Level 7.9L, Carbon Dioxide Level 27, Chloride Level 99, Creatinine 0.58L, Estimat Glomerular Filtration Rate > 60, Glucose Level 155H, Lipase 134H, Potassium Level 3.3L, Sodium Level 135, Total Bilirubin 0.7, Total Protein 5.2L 09/21/16 18:25: Glucometer 153H 09/22/16 00:10: Glucometer 139H 09/22/16 05:01: Glucometer 134H 09/22/16 06:18: Anion Gap 11, BUN/Creatinine Ratio 14, Blood Urea Nitrogen 8, Calcium Level 8.2L , Carbon Dioxide Level 26, Chloride Level 101, Creatinine 0.56L, Estimat Glomerular Filtration Rate > 60, Glucose Level 130H, Hematocrit 34L, Hemoglobin 11.6L, Mean Corpuscular Hemoglobin 32, Mean Corpuscular Hemoglobin Concent 34, Mean Corpuscular Volume 95, Mean Platelet Volume 10.2, Platelet Count 172, Potassium Level 3.4L, Red Blood Count 3.61L, Red Cell Distribution Width 13.1, Sodium Level 138, White Blood Count 10.6 09/22/16 09:46: Glucometer 126H Assessment/Plan Assessment/Plan Assessment/Plan 1) Acute pancreatitis secondary to alcohol intake. Last episode was back in November, spent time in [facility] ICU and then transferred to . Check Amylase and Lipase to see which direction pancreatitis is going Pt may need to see GI who does Endoscopic US and probably get Gastrocystostomy drainage slowly advance to low fat diet. transition to PO pain meds. 2) Bilateral pleural effusion seen on CT with some atelactasis. Pt must use IS Will order CXR Clinical Quality Measures DVT/VTE Risk/Contraindication: Risk Factor Score Per Nursin RFS Level Per Nursing on Admit: 2=Moderate FELISHA VASQUEZ DO Sep 22, 2016 11:16
[2016-09-22 12:00] VITALS: BP_SYST 157; BP_SYST 164; BP_DIAS 95
[2016-09-22 13:04] LABS: AMYLASE 44 U/L (25-125); LIPASE 136 U/L (8-78)
--- NOTE | 2016-09-22 14:06 | Progress Note-Hospitalist ---
Standard Progress Note Progress Notes/Assess & Plan Date Seen 09/22/16 Diagnosis Assessment: Acute pancreatitis recurrent type. Last 11/29 complicated with pneumonia and C. diff required [facility] transfer for 7 days. Now with increased pain and possible necrosis of pancreas. Smoker Leukocytosis Assess & Plan/Chief Complaint The patient is a 31-year-old white male admitted for pancreatitis and abdominal pain. He had an episode in January 2016 in which she spent a number of days at [facility] for the same. He reported having become distraught over the breakup of a personal relationship and having taken a pint of vodka. He shortly had abdominal pain reminiscent of his previous pancreatitis. On presentation to the emergency room he had a white blood count of 17,580 and a lipase of 388/78. He has been on IV pain relievers, antibiotics and IV fluids because of his nothing by mouth status. He reports that he has well controlled on oral dialogue noted. His lipase although certainly not impressive by level has come down very slowly and is presently 136. He is beginning to get hungry. Physical exam: The patient is a slender white male who appears his stated age. Lungs are clear to auscultation. CV is regular without murmur. Abdomen is punchy despite his slender habitus. There is no pain to palpation. Bowel sounds are hypoactive. He reports he is begun to have flatus. There is no pedal edema. Impression: Resolving pancreatitis. Plan: Begin full liquid diet. Encourage ambulation Labs Laboratory Tests 09/21/16 08:35 09/21/16 13:55 09/22/16 06:18 KISHAN FLORES MD Sep 22, 2016 14:06
--- NOTE | 2016-09-22 15:15 | Diagnostic Imaging Report ---
INDICATION: Pancreatitis, cough at night. Pleural effusion. TECHNIQUE: Two view chest 11:45 AM CORRELATION STUDY: 09/19/2016 FINDINGS: Heart size and mediastinum relatively stable. Vasculature very slightly increased from prior study. Right-sided central line tip projected over the cavoatrial junction. Small bilateral pleural effusions. Bibasilar areas of atelectasis. Visualized osseous structures are unremarkable. IMPRESSION: 1. Developed small bilateral pleural effusion along bibasilar atelectasis. Vasculature slightly increased, but without failure. Dictated by: Dictated on workstation # [id number]
[2016-09-22 16:00] VITALS: BP 148/90
[2016-09-22] MEDS: SODIUM CHLORIDE IV SCH ×12 (17:01)
[2016-09-22] MEDS: SODIUM ACETATE IV SCH ×12 (17:01)
[2016-09-22] MEDS: [UNRECOGNIZED DRUG - OTHER] IV SCH ×12 (17:01)
[2016-09-23] VITALS: BP 143/81
[2016-09-23] MEDS: HYDROcodone/APAP 7.5 MG/325 MG (LORTAB, LORCET PLUS) TABLET PO PRN ×3 (02:08→09:18)
[2016-09-23] MEDS: MEROPENEM 500 MG/NS 100 ML IVPB IV SCH ×8 (05:34→23:33)
[2016-09-23] MEDS: ENOXAPARIN 40 MG/0.4 ML (LOVENOX) SYR SC SCH (05:34)
[2016-09-23 05:52] LABS: BASOPHILS % (AUTO) 0 % (0-10); EOSINOPHILS # (AUTO) 0.2 10^3/uL (0.0-0.3); EOSINOPHILS % (AUTO) 2 % (0-10); LYMPHOCYTES # (AUTO) 1.4 X 10^3 (1.0-4.0); LYMPHOCYTES % (AUTO) 16 % (12-44); MEAN CORPUSCULAR HEMOGLOBIN 32 PG (25-34); MEAN CORPUSCULAR HGB CONC 34 G/DL (32-36); MEAN CORPUSCULAR VOLUME 95 FL (80-99); MEAN PLATELET VOLUME 9.7 FL (7.4-10.4); MONOCYTES # (AUTO) 0.8 X 10^3 (0.0-1.0); MONOCYTES % (AUTO) 9 % (0-12); NEUTROPHILS # (AUTO) 6.6 X 10^3 (1.8-7.8); NEUTROPHILS % (AUTO) 74 % (42-75); PLATELET COUNT 227 10^3/uL (130-400); RED BLOOD COUNT 3.64 10^6/uL (4.35-5.85); RED CELL DISTRIBUTION WIDTH 13.2 % (10.0-14.5)
[2016-09-23 06:18] LABS: AMYLASE 42 U/L (25-125); LIPASE 138 U/L (8-78)
[2016-09-23 07:50] VITALS: BP 133/80
[2016-09-23] MEDS: SENNA W/DOCUSATE (SENOKOT S) TABLET PO SCH (09:18)
[2016-09-23] MEDS: CATHETER FLUSH 10 ML SYR IV PRN (09:18)
[2016-09-23] MEDS: PANTOPRAZOLE 40 MG/10 ML (PROTONIX) VIAL IV SCH ×2 (09:18→20:21)
[2016-09-23] MEDS: NICOTINE PATCH REMOVAL TP SCH (09:19)
[2016-09-23] MEDS: NICOTINE 14 MG (NICODERM) PATCH TD SCH (09:19)
--- NOTE | 2016-09-23 12:19 | Progress Note ---
Subjective Subjective/Events-last exam Pt seen and examined. Complains of abdominal pain, had episode of coughing last night but denies SOB. Pt is hungry. He also thinks he may be a little more "distended" today. Review of Systems General: No Chills, No Night Sweats HEENT: No Head Aches, No Visual Changes Pulmonary: No Dyspnea, Cough Cardiovascular: No: Chest Pain, Palpitations Gastrointestinal: : Abdominal PainNo: Nausea, Vomiting Genitourinary: No Dysuria, No Frequency Objective Exam Vital Signs Date Time Temp Pulse Resp B/P Pulse Ox O2 Delivery O2 Flow Rate FiO2 09/23/16 09:50 97.6 09/23/16 08:09 Room Air 09/23/16 07:50 97.6 90 20 133/80 95 Room Air 09/23/16 00:00 99.2 93 20 143/81 93 Room Air 09/22/16 20:00 Room Air 09/22/16 16:59 99.1 09/22/16 16:00 99.1 93 20 148/90 97 Room Air 09/22/16 14:50 18 09/22/16 12:51 99.5 I & O 09/23/16 07:00 Intake Total 5086 ml Output Total 4850 ml Balance 236 ml Capillary Refill : Less Than 3 Seconds General Appearance: No Apparent Distress WD/WN HEENT: PERRL/EOMI Pharynx Normal Neck: Full Range of Motion Respiratory: Chest Non Tender No Accessory Muscle Use Decreased Breath Sounds (at bases) Rhonci Cardiovascular: Regular Rate, Rhythm No Murmur Peripheral Pulses: 2+ Dorsalis Pedis (R), 2+ Left Dors-Pedis (L), 2+ Radial Pulses (R), 2+ Radial Pulses (L) Gastrointestinal: normal bowel sounds soft distended (minimally) Extremity: Normal Capillary Refill Non Tender No Calf Tenderness Neurologic/Psychiatric: Alert Oriented x3 Normal 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 Norm as Tested Skin: Normal Color Warm/Dry Lymphatic: No Adenopathy Results Lab Laboratory Tests 09/22/16 12:38: Amylase Level 44, Lipase 136H 09/23/16 05:40: Amylase Level 42, Lipase 138H, Basophils # (Auto) 0.0, Basophils (%) (Auto) 0, Eosinophils # (Auto) 0.2, Eosinophils (%) (Auto) 2, Hematocrit 34L, Hemoglobin 11.6L, Lymphocytes # (Auto) 1.4, Lymphocytes (%) (Auto) 16, Mean Corpuscular Hemoglobin 32, Mean Corpuscular Hemoglobin Concent 34, Mean Corpuscular Volume 95, Mean Platelet Volume 9.7, Monocytes # (Auto) 0.8, Monocytes (%) (Auto) 9, Neutrophils # (Auto) 6.6, Neutrophils (%) (Auto) 74, Platelet Count 227, Red Blood Count 3.64L, Red Cell Distribution Width 13.2, White Blood Count 9.0 09/23/16 06:04: Glucometer 111H Assessment/Plan Assessment/Plan Assessment/Plan 1) Acute pancreatitis secondary to alcohol intake. - Amylase WNL and Lipase mildly elevated, but no increase from yesterday Pt may need to see GI who does Endoscopic US and probably get Gastrocystostomy drainage, but this will need to wait until cyst wall is mature - Because pt continues to have abdominal pain he will be put back on NPO status - Will need IV pain meds 2) Bilateral pleural effusion seen on CT with some atelactasis. Pt must use IS Clinical Quality Measures DVT/VTE Risk/Contraindication: Risk Factor Score Per Nursin RFS Level Per Nursing on Admit: 2=Moderate FELISHA VASQUEZ DO Sep 23, 2016 12:19
--- NOTE | 2016-09-23 12:23 | Progress Note-Hospitalist ---
Standard Progress Note Progress Notes/Assess & Plan Date Seen 09/23/16 Diagnosis Assessment: Acute pancreatitis recurrent type. Last 11/29 complicated with pneumonia and C. diff required [facility] transfer for 7 days. Now with increased pain and possible necrosis of pancreas. Smoker Leukocytosis Assess & Plan/Chief Complaint The patient reports that he has been able to walk in the halls. He continues to have pain however the oral pain meds control this. He reports that the pain is actually less than when he was discharged from in the spring time. We discussed pathophysiology. I believe that he would benefit from endoscopic Pancreatitis or the including the possibility of ultrasound. That would have to be done in [place] or back at . He is willing and eager to pursue this path. It appears that his lipase has plateaued as it was 136 yesterday and 138 today. Physical exam: Lungs are clear to auscultation. CV is regular without murmur. Abdomen is modestly and rather diffusely tender above the umbilicus. Impression: Recurrent pancreatitis Plan: Discharge. He will remain on a low-fat diet. Analgesia will be provided. He is to contact Dr. Casillas to arrange GI consultation. Abstinence from alcohol is again stressed. Labs Laboratory Tests 09/21/16 13:55 09/22/16 06:18 09/23/16 05:40 Final Diagnosis Pancreatitis KISHAN FLORES MD Sep 23, 2016 12:23
[2016-09-23] MEDS: HYDROmorphone (DILAUDID) 2 MG/ML VIAL IVP PRN ×3 (12:53→21:13)
[2016-09-23 16:00] VITALS: BP 159/90
[2016-09-23 16:13] VITALS: BP 159/90
[2016-09-23] MEDS: SODIUM ACETATE IV SCH ×12 (16:37)
[2016-09-23] MEDS: SODIUM CHLORIDE IV SCH ×12 (16:37)
[2016-09-23] MEDS: [UNRECOGNIZED DRUG - OTHER] IV SCH ×12 (16:37)
[2016-09-23] MEDS: ACETAMINOPHEN 325 MG TABLET/CAPLET (TYLENOL) PO PRN (20:22)
[2016-09-24] VITALS: BP 131/82
[2016-09-24] MEDS: 1/2 NS IV SOLUTION 1,000 ML IV SCH ×2 (01:26→17:00)
[2016-09-24] MEDS: HYDROmorphone (DILAUDID) 2 MG/ML VIAL IVP PRN ×2 (01:30→06:13)
[2016-09-24] MEDS: MEROPENEM 500 MG/NS 100 ML IVPB IV SCH ×4 (05:31→12:35)
[2016-09-24] MEDS: ENOXAPARIN 40 MG/0.4 ML (LOVENOX) SYR SC SCH (06:06)
[2016-09-24 08:00] VITALS: BP 148/84
[2016-09-24] MEDS: NICOTINE 14 MG (NICODERM) PATCH TD SCH (08:16)
[2016-09-24] MEDS: PANTOPRAZOLE 40 MG/10 ML (PROTONIX) VIAL IV SCH (08:16)
[2016-09-24] MEDS: SENNA W/DOCUSATE (SENOKOT S) TABLET PO SCH (08:16)
[2016-09-24] MEDS: NICOTINE PATCH REMOVAL TP SCH (08:16)
[2016-09-24] MEDS: RT-ALBUTEROL/IPRATROPIUM 3 ML (DUONEB) VIAL INH SCH ×2 (09:35→14:26)
[2016-09-24 09:58] LABS: ALANINE AMINOTRANSFERASE 22 U/L (0-55); ALBUMIN 3.7 G/DL (3.2-4.5); ANION GAP 10 MMOL/L (5-14); ASPARTATE AMINO TRANSFERASE 27 U/L (5-34); BILIRUBIN,TOTAL 0.5 MG/DL (0.1-1.0); BLOOD UREA NITROGEN 11 MG/DL (7-18); BUN/CREATININE RATIO 16; CALCIUM 8.8 MG/DL (8.5-10.1); CARBON DIOXIDE 25 MMOL/L (21-32); CHLORIDE 103 MMOL/L (98-107); CREATININE SERUM 0.68 MG/DL (0.60-1.30); GFR ESTIMATED > 60; GLUCOSE 110 MG/DL (70-105); MAGNESIUM 2.5 MG/DL (1.8-2.4); PHOSPHORUS 3.1 MG/DL (2.3-4.7); SODIUM 138 MMOL/L (135-145); TOTAL PROTEIN 6.5 G/DL (6.4-8.2); TRIGLYCERIDES 95 MG/DL (<150)
--- NOTE | 2016-09-24 10:18 | Discharge Summary-Hospitalist ---
Diagnosis/Chief Complaint Date of Admission Sep 18, 2016 at 10:33 Date of Discharge Admission Diagnosis Assessment: Acute pancreatitis recurrent type. Last 11/29 complicated with pneumonia and C. diff required [facility] transfer for 7 days. Now with increased pain and possible necrosis of pancreas. 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 Marinelli. RN states that she has been encouraging pt to ambulate. Dr. Marinelli stated that pt will be set for CLD after CT scan. Patient Interview: Pt states that he feels better today. Dr. Grace informs pt that WBC is stable, and overall health is improving. Physical exam was stable. Pt states that his pain is manageable. Pt had a Hydrocodone this morning. Dr. Grace informs pt that he may be able to DC this weekend depending on CT scan results, but may have to stay longer. Scribed by Conrado Worley under the direct supervision of Dr. Grace. AFVSS, Pleasant, O x 3, thin, improved today, more comfy RRR, CTAB no rales noted + BS mild ttp to soft palpation Laboratory Tests 09/21/16 08:35 Assessment: Severe and recurrent pancreatitis Immobile so ordered PT and ordered Lovenox for DVT Px meth use ETOH-ism Plan: CT abdomen/pelvis repeat today Advance diet per Dr. Marinelli's orders Consult Dr. Marinelli appreciated Continue Protonix IV PICC line maintained Maintain TPN Maintain BLOCKER AND POLISHER GOLD WHEEL of Dilaudid Will initiate Lovenox due to immobile state PT Reason Hospital Visit/Course CC: Severe abdominal pain HPI: This is a 31yoWM that has Hx of pancreatitis due to severe ETOH abuse that presents to ER with abdominal pain found to have acute pancreatitis on CT scan with lipase of 388. He reports that he has been trying to avoid ETOH but had a break up with his girlfriend and drank a pint of vodka which resulted in this issue. RN is concerned about elevated WBC and severe pain and tachycardia. I have consulted Dr. Marinelli, due to possible necrosis on CT scan. Chart Review: CT abdomen shows acute pancreatitis with possible fluid collection or necrosis. 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 WBC has risen slightly. Pt's vomit was discolored, possible blood. Patient Interview: Dr. Grace informs pt that he will receive Protonix and will have a consultation with Dr. Marinelli. Pt states that he still has significant pain. Pt states that he always has heart burn. Pt states that he thinks there was tar in his vomit, not blood, due to his smoking habits. Physical exam was stable. Pt states that he had pancreatitis in November of 2015. Pt was hospitalized at [facility] for 4 days and then sent to for pneumonia and C. diff. Pt does not remember much of this incident. Pt stayed at for a week. Pt states that he has stayed away from ETOH until recent break up. 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 Pt states that his current pain meds last for only an hour. Scribed by Conrado Worley under the direct supervision of Dr. Grace. Notes from 09/24/2015: Patient Interview: Dr. Grace informs pt that he will likely DC today. Pt states that he feels ready. Pt states that he did not get sick after eating yesterday. Pt states that PCP is Dr. Casillas and he uses [facility] pharmacy. Pt states that his pain is a 3 right now, but he received a shot at 6am. Pt states that he has some bowel meds at home. Physical exam was stable. AFVSS, Pleasant, improved RRR, CTAB non-tender abdomen Plan: Lactulose and suppository if needed Scribed by Conrado Worley under the direct supervision of Dr. Grace. Hospital course: Patient a lengthy hospital course he was rapidly started on TPN given his history of pancreatitis and long hospital course at med back in November 2015. Dr. Marinelli [place] consultation repeat CT scan 2 days after admission showed pseudocyst formation with worsening pancreas organ status likely will turn into chronic pancreatitis and long-standing issue for this patient. Complete abstinence from alcohol was counseled in addition to any other illegal use of methamphetamine and smoking to improve his quality of life even the fact that this likely will turn into chronic pancreatitis and a painful chronic condition. He was deemed stable for discharge advance diet and constipation will be managed at the hospital prior to discharge at home to continue and resume normal status. Discharge Summary Discharge Physical Examination Allergies: Coded Allergies: amoxicillin (Unverified Allergy, Unknown, 12/22/13) clavulanic acid (Unverified Allergy, Unknown, 12/22/13) Vitals & I&Os Vital Signs Date Time Temp Pulse Resp B/P Pulse Ox O2 Delivery O2 Flow Rate FiO2 09/24/16 09:35 91 Room Air 09/24/16 08:00 97.9 84 16 148/84 Hospital Course Labs (last 24 hrs) Laboratory Tests 09/24/16 06:07: Glucometer 146H 09/24/16 09:26: Alanine Aminotransferase (ALT/SGPT) 22, Albumin 3.7, Alkaline Phosphatase 133, Anion Gap 10, Aspartate Amino Transf (AST/SGOT) 27, BUN/Creatinine Ratio 16, Blood Urea Nitrogen 11, Calcium Level 8.8, Carbon Dioxide Level 25, Chloride Level 103, Creatinine 0.68, Estimat Glomerular Filtration Rate > 60, Glucose Level 110H, Magnesium Level 2.5H, Phosphorus Level 3.1, Potassium Level 4.0, Prealbumin 14.7L, Sodium Level 138, Total Bilirubin 0.5, Total Protein 6.5, Triglycerides Level 95 Pending Labs Laboratory Tests 09/24/16 06:07: Glucometer 146 09/24/16 09:26: Alanine Aminotransferase (ALT/SGPT) 22, Albumin 3.7, Alkaline Phosphatase 133, Anion Gap 10, Aspartate Amino Transf (AST/SGOT) 27, BUN/Creatinine Ratio 16, Blood Urea Nitrogen 11, Calcium Level 8.8, Carbon Dioxide Level 25, Chloride Level 103, Creatinine 0.68, Estimat Glomerular Filtration Rate > 60, Glucose Level 110, Magnesium Level 2.5, Phosphorus Level 3.1, Potassium Level 4.0, Prealbumin 14.7, Sodium Level 138, Total Bilirubin 0.5, Total Protein 6.5, Triglycerides Level 95 Discharge Home Medications: Active Scripts Active Percocet 10-325 mg Tablet (Oxycodone HCl/Acetaminophen) 1 Each Tablet 1 Each PO Q4H PRN Instructions to patient/family Please see electonic discharge instructions given to patient. Clinical Quality Measures DVT/VTE Risk/Contraindication: Risk Factor Score Per Nursin RFS Level Per Nursing on Admit: 2=Moderate FAN GRACE DO Sep 24, 2016 10:18
[2016-09-24] MEDS ORDERED: OXYC-202 PO (11:28)
[2016-09-24] MEDS ORDERED: BISACODYL 10 MG SUPP (DULCOLAX) PR NR (11:30)
[2016-09-24] MEDS ORDERED: LACTULOSE SYRUP 10GM/15ML (ENULOSE) 30ML UDC PO SCH (11:30)
[2016-09-24] MEDS ORDERED: oxyCODONE/APAP 10/325MG (PERCOCET 10) TABLET PO PRN (12:45)
[2016-09-24] MEDS ORDERED: LEVO750T9 PO (15:47)
[2016-09-24 16:27] VITALS: BP 130/73
[2016-09-24] MEDS: SODIUM ACETATE IV SCH ×12 (17:00)
[2016-09-24] MEDS: [UNRECOGNIZED DRUG - OTHER] IV SCH ×12 (17:00)
[2016-09-24] MEDS: SODIUM CHLORIDE IV SCH ×12 (17:00)
[2016-09-24 17:57] VITALS: BP 130/73
== END 2016-09-24 17:38 | disposition home or self-care (01) | DRG 439 ==
LOC: EDUNIT# 07:27 → ER 07:30 → 4TH 10:33
PROVIDERS: ADMIT Internal Medicine; ATTEND Internal Medicine
DX: K85.20 Alcohol induced acute pancreatitis without necrosis or infection (principal); J90 Pleural effusion, not elsewhere classified; K86.3 Pseudocyst of pancreas; J98.11 Atelectasis; K86.1 Other chronic pancreatitis; F17.210 Nicotine dependence, cigarettes, uncomplicated; D72.829 Elevated white blood cell count, unspecified; F41.9 Anxiety disorder, unspecified; F90.9 Attention-deficit hyperactivity disorder, unspecified type; F32.9 Major depressive disorder, single episode, unspecified; F10.10 Alcohol abuse, uncomplicated; F15.90 Other stimulant use, unspecified, uncomplicated
CPT/HCPCS: 36415; 36569; 71010; 71020; 74177; 76937; 80048; 80053; 80306; 80320; 81000; 82150; 82962; 83690; 83735; 84100; 84134; 84478; 85007; 85025; 85027; 94640; 94664; 94760; 96361; 96374; 96375

== ENCOUNTER 2017-12-14 22:21 | Emergency (ER) | payer SELFPAY ==
[~2017-12-14] VITALS: Ht 182.9 cm; Wt 61.2 kg
[~2017-12-14 22:21] MED LIST changes: +BUSP30TA2 PO; +DIAZ2TAB PO; +LEVO750T9 PO; +OXYC-202 PO
[2017-12-15] MEDS ORDERED: ONDN4T PO (00:45)
[2017-12-15] MEDS ORDERED: ALPR0.25 PO (00:45)
[2017-12-15] MEDS ORDERED: GABA-488 PO (00:45)
[2017-12-15] MEDS ORDERED: TAMS0.4C2 PO (00:45)
[2017-12-15] MEDS ORDERED: DICY10CA12 PO (00:45)
[2017-12-15] MEDS ORDERED: TIZA2CAP9 PO (00:45)
[2017-12-15] MEDS ORDERED: PROMETHAZINE INJ 25 MG/ML (PHENERGAN) AMP IVP STA (00:54)
[2017-12-15] MEDS ORDERED: NS IV 1000 ML 1,000 ML IV STA (00:54)
[2017-12-15] MEDS ORDERED: fentaNYL INJECTION 100 MCG/2 ML AMP IVP STA (00:54)
[2017-12-15 01:01] LABS: BILIRUBIN,URINE NEGATIVE (NEGATIVE); CLARITY,URINE CLEAR; COLOR,URINE YELLOW; GLUCOSE, URINE (UA) NEGATIVE (NEGATIVE); KETONES,URINE NEGATIVE (NEGATIVE); LEUKOCYTE ESTERASE ,URINE 2+ (NEGATIVE); NITRITE,URINE NEGATIVE (NEGATIVE); PH,URINE 7 (5-9); PROTEIN,URINE NEGATIVE (NEGATIVE); UROBILINOGEN,URINE NORMAL (NORMAL)
[2017-12-15 01:01] LABS: BASOPHILS % (AUTO) 0 % (0-10); EOSINOPHILS # (AUTO) 0.1 10^3/uL (0.0-0.3); EOSINOPHILS % (AUTO) 1 % (0-10); HEMATOCRIT 43 % (40-54); HEMOGLOBIN 15.6 G/DL (13.3-17.7); LYMPHOCYTES # (AUTO) 3.4 X 10^3 (1.0-4.0); LYMPHOCYTES % (AUTO) 35 % (12-44); MEAN CORPUSCULAR HEMOGLOBIN 32 PG (25-34); MEAN CORPUSCULAR HGB CONC 36 G/DL (32-36); MEAN CORPUSCULAR VOLUME 89 FL (80-99); MEAN PLATELET VOLUME 10.7 FL (7.4-10.4); MONOCYTES # (AUTO) 0.5 X 10^3 (0.0-1.0); MONOCYTES % (AUTO) 5 % (0-12); NEUTROPHILS # (AUTO) 5.7 X 10^3 (1.8-7.8); NEUTROPHILS % (AUTO) 58 % (42-75); PLATELET COUNT 281 10^3/uL (130-400); RED BLOOD COUNT 4.89 10^6/uL (4.35-5.85); RED CELL DISTRIBUTION WIDTH 11.8 % (10.0-14.5); WHITE BLOOD COUNT 9.8 10^3/uL (4.3-11.0)
[2017-12-15 01:08] LABS: BACTERIA,URINE TRACE /HPF; CALCIUM OXALATE CRYSTALS,UR RARE /LPF; SQUAMOUS EPITHELIAL CELL,UR RARE /HPF; WBC,URINE 0-2 /HPF
[2017-12-15 01:16] LABS: ALANINE AMINOTRANSFERASE 18 U/L (0-55); ALKALINE PHOSPHATASE 88 U/L (40-136); AMYLASE 28 U/L (25-125); BILIRUBIN,TOTAL 0.6 MG/DL (0.1-1.0); BUN/CREATININE RATIO 5; CALCIUM 9.9 MG/DL (8.5-10.1); CARBON DIOXIDE 22 MMOL/L (21-32); CHLORIDE 104 MMOL/L (98-107); CREATININE SERUM 0.79 MG/DL (0.60-1.30); GFR ESTIMATED > 60; GLUCOSE 98 MG/DL (70-105); LIPASE 4 U/L (8-78); POTASSIUM 3.6 MMOL/L (3.6-5.0); SODIUM 138 MMOL/L (135-145); TOTAL PROTEIN 7.6 GM/DL (6.4-8.2)
[2017-12-15] MEDS ORDERED: NS 250 ML (IVPB) BAG IV ONE (01:45)
[2017-12-15] MEDS ORDERED: IOHEXOL 350 MG/ML 100 ML (OMNIPAQUE 350) VIAL IV ONE (01:45)
[2017-12-15] MEDS ORDERED: HYDROmorphone (DILAUDID) 2 MG/ML VIAL IVP STA (01:54)
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
[2017-12-15 03:19] VITALS: BP 135/90
--- NOTE | 2017-12-15 07:24 | Diagnostic Imaging Report ---
PROCEDURE: CT abdomen and pelvis with contrast. TECHNIQUE: Multiple contiguous axial images were obtained through the abdomen and pelvis after administration of intravenous contrast. INDICATION: Left abdominal pain. Comparison is made study of 09/21/2016. FINDINGS: Since previous study, the pleural fluid has resolved. There is mild low-density in the liver, however no focal hepatic or splenic abnormality is identified. Gallbladder, pancreas and adrenal glands are also unremarkable in appearance. There is no evidence of renal lesion or adverse change. No free fluid is seen in the abdomen or pelvis. Appendix has a normal appearance. There is fluid distention of small bowel with occasional air-fluid levels noted. Partially opacified urinary bladder is unremarkable. IMPRESSION: Fluid distention of small bowel with occasional air-fluid levels may reflect ileus or possible enteritis. Otherwise, there is no acute abnormality or adverse change compared to previous study. Dictated by: Dictated on workstation # [id number]
== END 2017-12-15 03:19 | disposition home or self-care (01) ==
LOC: EDUNIT# 22:21 → ER 22:24
DX: R10.32 Left lower quadrant pain (principal); R10.12 Left upper quadrant pain; K86.1 Other chronic pancreatitis; F90.9 Attention-deficit hyperactivity disorder, unspecified type; F41.9 Anxiety disorder, unspecified; Z90.89 Acquired absence of other organs; Z87.442 Personal history of urinary calculi; Z88.1 Allergy status to other antibiotic agents
CPT/HCPCS: 36415; 74177; 80053; 81000; 82150; 83690; 85025; 96361; 96374; 96375

== ENCOUNTER 2022-10-29 05:39 | Outpatient (CLI) | payer OTHER ==
[~2022-10-29] VITALS: Ht 182.9 cm; Wt 77.0 kg
[~2022-10-29 05:39] MED LIST changes: +ALPR0.25 PO; +DICY10CA12 PO; +GABA-488 PO; +ONDN4T PO; -OXYC-202 PO; +OXYC1TAB12 PO; +TAMS0.4C2 PO; +TIZA2CAP9 PO
[2022-10-29] MEDS ORDERED: TRM50T PO (14:40)
[2022-10-29] MEDS ORDERED: PANT40TA52 PO (14:40)
[2022-10-29] MEDS ORDERED: INSU100V5 SQ (14:40)
[2022-10-29] MEDS ORDERED: CLON0.5T4 PO (14:40)
[2022-10-29] MEDS ORDERED: CYCL10TA25 PO (14:40)
[2022-10-29] MEDS ORDERED: INSU100V37 SQ (14:40)
[2022-10-29] MEDS ORDERED: DULO60CA59 PO (14:40)
[2022-10-29] MEDS ORDERED: INSU100I14 SQ (14:40)
[2022-10-29] MEDS ORDERED: MIRT-68 PO (14:40)
== END 2022-10-29 14:41 | disposition home or self-care (01) ==
LOC: PREOP 05:39
PROVIDERS: ATTEND Surgery
DX: Z01.818 Encounter for other preprocedural examination (principal)

== ENCOUNTER 2022-10-31 08:37 | Day surgery (SDC) | payer OTHER ==
[2022-10-31] VITALS (11 sets, daily range): BP systolic 125–147; BP diastolic 84–99
[~2022-10-31] VITALS: Ht 182.9 cm; Wt 77.0 kg
[~2022-10-31 08:37] MED LIST changes: +CLON0.5T4 PO; +CYCL10TA25 PO; +DULO60CA59 PO; +INSU100I14 SQ; +INSU100V37 SQ; +INSU100V5 SQ; +MIRT-68 PO; +PANT40TA52 PO; +TRM50T PO
[2022-10-31] MEDS: LACTATED RINGERS 1,000 ML IV PRN ×2 (09:26→13:06)
[2022-10-31] MEDS ORDERED: METO75TA PO (09:27)
[2022-10-31] MEDS ORDERED: fentaNYL INJ 100 MCG/2 ML AMP IVP ONE ×3 (09:30→12:30)
[2022-10-31] MEDS ORDERED: MIDAZOLAM 2 MG/2 ML (VERSED) VIAL ONE (10:50)
[2022-10-31] MEDS ORDERED: ONDANSETRON 4 MG/2 ML (SDV) Z0FRAN ONE (10:50)
[2022-10-31] MEDS ORDERED: fentaNYL INJ 250 MCG/5 ML AMP ONE (10:50)
[2022-10-31] MEDS ORDERED: LIDOCAINE PF 2% 5 ML (XYLOCAINE) VIAL ONE (10:50)
[2022-10-31] MEDS ORDERED: proPOfol 200 MG/20 ML (DIPRIVAN) VIAL IV ONE (10:50)
[2022-10-31] MEDS ORDERED: ROCURONIUM 50 MG/5 ML (ZEMURON) VIAL IV ONE (10:50)
--- NOTE | 2022-10-31 10:55 | Progress Note-Pre Operative ---
Pre-Operative Progress Note Date H&P Reviewed: Oct 31, 2022 Time H&P Reviewed: 10:52 History & Physical: H&P Reviewed, Patient Examed, No changes noted Pre-Operative Diagnosis: Cholelithiasis/Cholecystitis, Pancreatitis FELISHA VASQUEZ DO Oct 31, 2022 10:54
[2022-10-31] MEDS ORDERED: BUPIVACAINE 0.5% 30 ML (SENSORCAINE) VIAL ONE (10:57)
[2022-10-31] MEDS ORDERED: BUP/EPI 0.5% 1:200,000 (SENSORCAINE) 30 ML VIAL ONE (10:59)
[2022-10-31] MEDS ORDERED: ceFAZolin INJECTION 2,000 MG in NS (IVPB) 50 ML IV ONE (11:00)
[2022-10-31] MEDS ORDERED: BUP/EPI 0.5% 1:200,000 (SENSORCAINE) 30 ML VIAL INJ ONE (11:05)
[2022-10-31] MEDS ORDERED: IOHEXOL 300 MG/ML 100 ML (OMNIPAQUE 300) VIAL IV ONE (11:06)
[2022-10-31] MEDS ORDERED: fentaNYL INJ 100 MCG/2 ML AMP ONE (11:08)
[2022-10-31] MEDS ORDERED: SUCCINYLCHOLINE INJ 20 MG/1 ML 10 ML VIAL ONE (11:27)
[2022-10-31] MEDS ORDERED: NEOSTIGMINE (BLOXIVERZ ) 1 MG/1ML 10 ML VIAL ONE (12:04)
[2022-10-31] MEDS ORDERED: GLYCOPYRROLATE 0.2 MG/ML (ROBINUL) 2 ML VIAL ONE (12:04)
[2022-10-31] MEDS ORDERED: SEVOFLURANE (ULTANE) 15 ML INHAL SOLN ONE (12:07)
[2022-10-31] MEDS ORDERED: ONDANSETRON 4 MG/2 ML (SDV) Z0FRAN IVP PRN (12:30)
[2022-10-31] MEDS ORDERED: HYDROmorphone 2 MG/ML VIAL (DILAUDID) IV ONE (12:30)
--- NOTE | 2022-10-31 13:12 | Progress Note-Post Operative ---
Post-Operative Progess Note Surgeon (s)/Pulp Cooker (s) Surgeon FELISHA VASQUEZ DO Pulp Cooker: Geovanna Pre-Operative Diagnosis Cholelithiasis/Cholecystitis, Pancreatitis Post-Operative Diagnosis Same plus narrowing of Common bile duct Early signs of right inguinal hernia Procedure & Operative Findings Date of Procedure 10/31/22 Procedure Performed/Findings PROCEDURE: Laparoscopic cholecystectomy with intraoperative cholangiogram. COMPLICATIONS: None. PROCEDURE: The patient was taken to the operating suite and was prepped and draped in sterile fashion. A surgical pause was performed. Just superior to the umbilicus, a 12 mm incision was made. Dissection was taken down to the fascia, which was then scored and grasped with a Barry and the abdomen was then entered. An 0 Vicryl suture was placed in a [id number] fashion and a Jasso trocar was placed and secured. Pneumoperitoneum was achieved. A [address]mm tro[address] in the subxyphoid and 2 in the right upper quadrant. The gallbladder was then grasped at the fundus and taken in the superior direction. Another graspe was used to grab Ferrell's pouch and taken in the infero-lateral direction. The gallbladder was noted to have very thickened wall. The cystic duct and cystic artery were then dissected out. Clip was placed on the distal portion of the cystic duct which was then partially transected. An arrow catheter was inserted into the duct. The cholangiogram was then performed. No filling defects were seen and contrast made its way into the duodenum; however, the common bile duct looked almost strictured toward the ampulla and this may be the cause of his recurrent Pancreatitis. Catheter removed, clips were placed on proximal portion of the cystic duct and then the duct was then transected. Clips were placed along the proximal and distal portion of the cystic artery which was then transected. Hook cautery was used to dissect the gallbladder from the gallbladder fossa achieving hemostasis. The gallbladder was placed in an Endobag and removed through the 12 mm trocar site. The abdomen was then reinspected; signs of early inguinal hernia on the right was seen. Copious amounts of irrigation were used to irrigate the abdomen and there were no signs of active bleeding. Hemostasis had been achieved. The 12 mm fascial defect was then closed with 0 Vicryl suture that had been placed in a [id number] fashion. The abdomen was then desufflated, the trocars were removed. The abdomen was then washed and dried. The skin was then closed using 4-0 Monocryl in a subcuticular fashion. The abdomen was washed and dried and Skin Affix was place over incisions. Patient tolerated the procedure well without any complications and was taken to the recovery room in stable condition. Dr. Austin assisted on this case helping to make incisions, close incisions, identify anatomy and hold anatomy out of the way. Anesthesia Type GET Estimated Blood Loss Estimated blood loss (mL): scant Specimens/Packing Specimens Removed GB and contents FELISHA VASQUEZ DO Oct 31, 2022 13:12
[2022-10-31] MEDS ORDERED: TRM50T PO (13:14)
--- NOTE | 2022-10-31 13:15 | Discharge Inst-Surgical ---
Discharge Inst-Surgical Depart Medication/Instructions New, Converted or Re-Newed RX: Transmitted to Pharmacy Patient Instructions Follow up Appt: Make appointment for 1 week. [phone] Instructions: No lifting greater than 20 pounds. No strenuous activity. May shower in 24 hours, no tub bath or soaking. Use incentive spirometer at home as directed. No Smoking Skin/Wound Care: May remove bandages in am. You need to leave the Dermabond on incision it will fall off on it's own. Symptoms to Report: Appetite Changes, Extremity Discoloration, Numbness/Tingling, Swelling Increased, Bleeding Excessive, Eyesight Changes, Pain Increased, Urine Color Change, Constipation(Persistent), Fever over 101 degree F, Pain/Pressure in chest, Urinating Difficulty, Cough Up/Vomit Blood, Heart Beat Irreg/Pounding, Pain/Pressure in jaw, Cramps in feet or legs, Lightheadedness, Pain/Pressure in shoulder, Diarrhea(Persistent), Memory Changes Suddenly, Questions/Concerns, Weight gain consecutive days, Dizziness/Fainting, Nausea/Vomiting, Shortness of Breath, Weight gain over 2 pounds If questions or concerns contact your physician Or seek help at emergency department. Activity Activity as Tolerated: Yes Activity Instructions: Avoid Stress to Incision Driving Instructions: No Driving/Refer to Dr. Eaton Discharge Diet: No Restrictions, Avoid Fatty Foods, Low Fat/Low Cholesterol Diet After 24 Hours: Clear Liquid if Nauseous If Any Problems/Questions/Issu: Contact Your Physician, Go to Emergency Room Skin/Wound Care Infection Signs and Symptoms: Increased Redness, Foul Odor of Wound, Increased Drainage, Skin Itchy or Has a Rash, Increased Swelling, Temperature Above 101 F Wound Care Comment: heating pad to shoulder or neck tonight for pain Bathing Instructions: Shower Stitches/[place]/Dermabond Dis: Dermond FELISHA VASQUEZ DO Oct 31, 2022 13:15
--- NOTE | 2022-11-06 07:19 | Anesthesia-General Post-Op ---
General Significant Intra-Op Events Notes Late entry: 10/31/22 @ 1300 Patient Condition Mental Status/LOC: Same as Preop Cardiovascular: Satisfactory Nausea/Vomiting: Absent Respiratory: Satisfactory Pain: Controlled Complications: Absent Post Op Complications Complications None Follow Up Care/Instructions Patient Instructions None needed. Anesthesia/Patient Condition Patient Condition Patient is doing well, no complaints, stable vital signs, no apparent adverse anesthesia problems. No complications reported per nursing. JOSH,JEANNETTE Ibarra CRNA Nov 06, 2022 07:19
== END 2022-10-31 14:25 ==
LOC: SDC 08:37
PROVIDERS: ATTEND Surgery
DX: K80.11 Calculus of gallbladder with chronic cholecystitis with obstruction (principal); Z87.891 Personal history of nicotine dependence
CPT/HCPCS: 76000; 82947; 87081